=== PATIENT | male | born 1950 | race Caucasian/White ===

== ENCOUNTER → 2016-07-14 | Outpatient (CLI) | payer OTHER, MEDICARE | LOC: FIMAGING 19:56 | PROVIDERS: ATTEND Family Medicine | DX: M19.042 Primary osteoarthritis, left hand (principal) ==

== ENCOUNTER 2017-08-31 12:26 | Emergency (ER) | payer OTHER, MEDICARE ==
[2017-08-31 12:36] VITALS: BP 172/103
--- NOTE | 2017-08-31 13:03 | EDPHY ---
H & P Time Seen by Provider: 08/31/17 12:49 HPI/ROS: CHIEF COMPLAINT: Left ankle injury HISTORY OF PRESENT ILLNESS: Slammed it in a car door 3 days ago presents with pain primarily on the medial malleolus of the left ankle. The night after it happened he was very active including going out dancing. REVIEW OF SYSTEMS: No foot or leg symptoms. PAST MEDICAL HISTORY: Gout and hypertension Social history: Owns a [employer] General Appearance: Alert and conversant, cooperative. Swelling and tenderness on the medial malleolus of the left ankle. No foot tenderness or swelling. No laceration. Normal motor sensory and dorsalis pedis pulse. No proximal tib-fib or fib tenderness compartments are soft. Emergency Department course/MDM: X-ray personally interpreted of the left ankle is negative, reviewed with the patient on the computer system. Symptomatic treatment, pain medication declined by the patient. Smoking Status: Light smoker Constitutional: Initial Vital Signs Temperature (C) 36.5 C 08/31/17 12:31 Heart Rate 64 08/31/17 12:31 Respiratory Rate 18 08/31/17 12:31 Blood Pressure 172/103 H 08/31/17 12:31 O2 Sat (%) 98 08/31/17 12:31 O2 Delivery Mode Room Air Allergies/Adverse Reactions: No Known Allergies Allergy (Verified 08/31/17 12:37) Home Medications: Medication Instructions Recorded Aspirin [Aspirin 81mg (OTC)] 81 mg PO DAILY 10/25/11 Lisinopril [Zestril 40 mg (RX)] 40 mg PO DAILY 10/25/11 Metoprolol Tartrate [Lopressor 25 25 mg PO BID 10/25/11 mg (RX)] Hydrochlorothiazide 08/31/17 MDM/Departure - MDM Imaging Results: Imaging Impressions Ankle X-Ray 08/31/17 12:40 Impression: Negative for acute fracture with probable residua of remote trauma noted. Imaging: I viewed and interpreted images myself - Depart Disposition: Home, Routine, Self-Care Clinical Impression: Contusion of left ankle, initial encounter Condition: Good Instructions: Contusion in Adults (ED) Referrals: STEVEN PIZANO [Primary Care Provider] - As per Instructions
== END 2017-08-31 13:09 | disposition home or self-care (01) ==
DX: S90.02XA Contusion of left ankle, initial encounter (principal); I10 Essential (primary) hypertension; F17.200 Nicotine dependence, unspecified, uncomplicated; Z79.82 Long term (current) use of aspirin; W23.1XXA Caught, crushed, jammed, or pinched between stationary objects, initial encounter

== ENCOUNTER → 2018-07-03 | Outpatient (CLI) | payer OTHER, MEDICARE | LOC: BHFA 13:30 | PROVIDERS: ATTEND Internal Medicine Cardiovascular Disease | DX: R07.9 Chest pain, unspecified (principal); R94.31 Abnormal electrocardiogram [ECG] [EKG] | CPT/HCPCS: 78452; 93017; A9500; J2785 ==